=== PATIENT | female | born 1945 | race Caucasian/White ===

== ENCOUNTER 2018-05-30 21:23 | Emergency (ER) | payer MEDICARE ==
[~2018-05-30] VITALS: Ht 157.5 cm; Wt 76.7 kg
[~2018-05-30 21:23] MED LIST: BENICAR40 MG; FERROUS SULFATE28 MG; KEFLEX500 MG PO; LORTAB 7.5-5001 EACH PO; METFORMIN HCL500 MG; SIMVASTATIN40 MG; TRILIPIX135 MG
[2018-05-30 22:10] LABS: BASOPHILS % 0.4 % (0.0-1.0); EOSINOPHILS # (AUTO) 0.1 (0.0-0.4); HEMOGLOBIN 11.2 g/dL (12.0-16.0); LYMPHOCYTES # (AUTO) 1.6 (1.0-3.2); LYMPHOCYTES % 23.2 % (18.0-39.1); MEAN CORPUSCULAR HEMOGLOBIN 29.4 pg (28-32); MEAN CORPUSCULAR HGB CONC 32.9 g/dL (31-35); MEAN CORPUSCULAR VOLUME 89.2 fL (81-99); MONOCYTES # (AUTO) 0.5 (0.2-0.8); MONOCYTES % 7.8 % (4.4-11.3); NEUTROPHILS # (AUTO) 4.6 (2.1-6.9); NEUTROPHILS % 66.2 % (38.7-80.0); PLATELET COUNT 179 x10e3/uL (140-360); RED BLOOD COUNT 3.81 x10e6/uL (3.6-5.1); RED CELL DISTRIBUTION WIDTH 13.2 % (11.7-14.4)
[2018-05-30 22:25] LABS: ALANINE AMINOTRANSFERASE 21 IU/L (0-55); ALBUMIN 3.6 g/dL (3.5-5.0); ALBUMIN/GLOBULIN RATIO 1.1 (0.8-2.0); ALKALINE PHOSPHATASE 81 IU/L (40-150); AMYLASE 41 U/L (25-125); ANION GAP 15.8 mmol/L (8-16); BLOOD UREA NITROGEN 17 mg/dL (7-26); BUN/CREATININE RATIO 23 (6-25); CALCIUM 9.3 mg/dL (8.4-10.2); CARBON DIOXIDE 23 mmol/L (22-29); CHLORIDE 103 mmol/L (98-107); CREATININE, SERUM 0.74 mg/dL (0.57-1.11); EST GLOMERULAR FILTRATION RATE > 60 ML/MIN (60-); GLUCOSE 214 mg/dL (74-118); LIPASE 17 U/L (8-78); POTASSIUM 3.8 mmol/L (3.5-5.1); SODIUM 138 mmol/L (136-145)
[2018-05-30 22:40] LABS: CLARITY,URINE CLEAR (CLEAR); COLOR,URINE YELLOW (YELLOW); LEUKOCYTE ESTERASE ,URINE 2+ (NEGATIVE)
[2018-05-30 22:41] LABS: BACTERIA,URINE MODERATE /HPF; BILIRUBIN,URINE NEGATIVE (NEGATIVE); EPITHELIAL CELLS,URINE FEW /LPF; KETONES,URINE NEGATIVE (NEGATIVE); NITRITE,URINE NEGATIVE (NEGATIVE); PROTEIN,URINE DIPSTICK NEGATIVE (NEGATIVE); RENAL EPITHELIAL CELLS,URINE FEW; URINE UROBILINOGEN 0.2 mg/dL (0.2 - 1); WBC,URINE (MAN) >50 /HPF (0-5)
[2018-05-30] MEDS ORDERED: TRAMADOL HCL 50 MG TAB PO ONE (23:15)
[2018-05-30] MEDS ORDERED: CEFTRIAXONE SOD 1 GM VIAL IV ONE (23:15)
--- NOTE | 2018-05-31 00:11 | Diagnostic Imaging Report ---
EXAM: CT Abdomen and Pelvis WITHOUT contrast INDICATION: Right-sided abdominal/back pain for one day. ^STONE PROTOCOL ^[id number] ^2320 ^Y COMPARISON: Abdominal CT 04/04/2011 TECHNIQUE: Abdomen and pelvis were scanned utilizing a multidetector helical scanner from the lung base to the pubic symphysis without administration of IV contrast. Coronal and sagittal reformations were obtained. Routine protocol was performed. IV CONTRAST: None ORAL CONTRAST: Water COMPLICATIONS: None RADIATION DOSE: Total DLP: 262.8 mGy*cm Estimated effective dose: (DLP x 0.015 x size factor) mSv CTDIvol has been reviewed. It is below the limits set by the Radiation Protocol Committee (RPC). Dose modulation, iterative reconstruction, and/or weight based adjustment of the mA/kV was utilized to reduce the radiation dose to as low as reasonably achievable. FINDINGS: Absence of intravenous contrast decreases sensitivity for detection of focal lesions and vascular pathology. LINES and TUBES: None. LOWER THORAX: Unremarkable HEPATOBILIARY: No focal hepatic lesions. No biliary ductal dilation. GALLBLADDER: Absent SPLEEN: No splenomegaly. PANCREAS: Atrophic. No focal masses or ductal dilatation. ADRENALS: No adrenal nodules KIDNEYS/URETERS: No hydronephrosis. Indeterminate 1.4 cm and 0.8 cm lesions in the superior pole of the left kidney measuring 48 HU and 61 HU respectively. Partial duplication of the left kidney. No stones. GI TRACT: No abnormal distention or evidence of bowel obstruction. Sutures in the sigmoid colon. Scattered colonic diverticula without evidence of diverticulitis. Thickening of an approximately 3.5 cm long segment of the ascending colon. Appendix is normal. PELVIC ORGANS/BLADDER: Unremarkable. LYMPH NODES: No lymphadenopathy. VESSELS: There is moderate atherosclerotic disease in the aorta and major arterial branches. PERITONEUM / RETROPERITONEUM: No free air or fluid. BONES: There are degenerative changes in the lumbar spine. SOFT TISSUES: Midline laparotomy scar. Small fat-containing supra umbilical hernias without stranding to suggest inflammation/strangulation. No bowel seen within. IMPRESSION: 1. No acute abnormalities in the abdomen or pelvis. 2. Ascending colonic wall thickening which may be related to underdistention. Recommend correlation with colon cancer screening and/or attention at the time of follow up imaging. 3. Two lesions in the left kidney are indeterminate and can be further evaluated with non-emergent abdominal MRI without and with contrast. Signed by: DR. Trenton Henley MD on 05/31/2018 12:08 AM
[2018-05-31 00:45] VITALS: BP 138/66
== END 2018-05-31 01:03 | disposition home or self-care (01) ==
LOC: ER 21:23
DX: M54.5 Low back pain (principal); R10.9 Unspecified abdominal pain; S39.011A Strain of muscle, fascia and tendon of abdomen, initial encounter; N30.91 Cystitis, unspecified with hematuria
CPT/HCPCS: 36415; 74176; 80053; 81001; 82150; 83690; 85025; 87086; 99284; J0696

== ENCOUNTER 2019-08-25 14:00 | Emergency (ER) | payer MEDICARE ==
[~2019-08-25] VITALS: Ht 157.5 cm; Wt 62.1 kg
--- OUTSIDE RECORDS SUMMARY | 2019-08-25 14:06 | XMS REPORT ---
Author Author [facility] Address Unknown Phone Unavailable Care Team Providers Care Door To Door Salesperson Name Role Phone René MCMAHAN Unavailable Unavailable Problems This patient has no known problems. Allergies, Adverse Reactions, Alerts This patient has no known allergies or adverse reactions. Medications This patient has no known medications. Results Test Description Test Time Test Comments Text Results Atomic Results Result Comments CT ABDOMEN/PELVIS WO 2018-05-30 23:54:00 [place] [address] Patient Name: CONNIE JOHNSON MR #: [id number] : 1945 Age/Sex: 72/F Req #: [id number] Adm Physician: Ordered by: KEITH MCMAHAN MD Report #: [id number] Location: ER Room/Bed: Procedure: [id number] CT/CT ABDOMEN/PELVIS WO Exam Date: 05/30/18 Exam Time: 2319 REPORT STATUS: Signed EXAM: CT Abdomen and Pelvis WITHOUT contrast INDICATION: Right-sided abdominal/back pain for one day. STONE PROTOCOL [id number] 2320 Y COMPARISON: Abdominal CT 04/04/2011 TECHNIQUE: Abdomen and pelvis were scanned utilizing a multidetector helical scanner from the lung base to the pubic symphysis without administration of IV contrast. Coronal and sagittal reformations were obtained. Routine protocol was performed. IV CONTRAST: None ORAL CONTRAST: Water COMPLICATIONS: None RADIATION DOSE: Total DLP: 262.8 mGy*cm Estimated effective dose: (DLP x 0.015 x size factor) mSv CTDIvol has been reviewed. It is below the limits set by the Radiation Protocol Committee (RPC). Dose modulation, iterative reconstruction, and/or weight based adjustment of the mA/kV was utilized to reduce the radiation dose to as low as reasonably achievable. FINDINGS: Absence of intravenous contrast decreases sensitivity for detection of focal lesions and vascular pathology. LINES and TUBES: None. LOWER THORAX: Unremarkable HEPATOBILIARY: No focal hepatic lesions. No biliary ductal dilation. GALLBLADDER: Absent SPLEEN: No splenomegaly. PANCREAS: Atrophic. No focal masses or ductal dilatation. ADRENALS: No adrenal nodules KIDNEYS/URETERS: No hydronephrosis. Indeterminate 1.4 cm and 0.8 cm lesions in the superior pole of the left kidney measuring 48 HU and 61 HU respectively. Partial duplication of the left kidney. No stones. GI TRACT: No abnormal distention or evidence of bowel obstruction. Sutures in the sigmoid colon. Scattered colonic diverticula without evidence of diverticulitis. Thickening of an approximately 3.5 cm long segment of the ascending colon. Appendix is normal. PELVIC ORGANS/BLADDER: Unremarkable. LYMPH NODES: No lymphadenopathy. VESSELS: There is moderate atherosclerotic disease in the aorta and major arterial branches. PERITONEUM / RETROPERITONEUM: No free air or fluid. BONES: There are degenerative changes in the lumbar spine. SOFT TISSUES: Midline laparotomy scar. Small fat-containing supra umbilical hernias without stranding to suggest inflammation/strangulation. No bowel seen within. IMPRESSION: 1. No acute abnormalities in the abdomen or pelvis. 2. Ascending colonic wall thickening which may be related to underdistention. Recommend correlation with colon cancer screening and/or attention at the time of follow up imaging. 3. Two lesions in the left kidney are indeterminate and can be further evaluated with non-emergent abdominal MRI without and with contrast. Signed by: DR. Trenton Henley MD on 05/31/2018 12:08 AM Dictated By: TRENTON HENLEY MD Transcribed By: DANG on 05/31/187 COPY TO: KEITH MCMAHAN MD
[2019-08-25] MEDS ORDERED: PANTOPRAZOLE 40 MG 10ML VIAL IV STA (14:21)
[2019-08-25] MEDS ORDERED: SODIUM CHLORIDE 0.9% 1000ML 1,000 ML IV STA (14:21)
[2019-08-25] MEDS ORDERED: ONDANSETRON HCL INJ 2MG/ML 2ML 2 MG/ML VIAL IV STA (14:21)
[2019-08-25 14:53] LABS: BASOPHILS % 0.2 % (0.0-1.0); EOSINOPHILS % 0.1 % (0.0-6.0); HEMOGLOBIN 13.3 g/dL (12.0-16.0); LYMPHOCYTES # (AUTO) 0.3 (1.0-3.2); LYMPHOCYTES % 4.1 % (18.0-39.1); MEAN CORPUSCULAR HEMOGLOBIN 29.6 pg (28-32); MEAN CORPUSCULAR HGB CONC 32.4 g/dL (31-35); MEAN CORPUSCULAR VOLUME 91.3 fL (81-99); MONOCYTES # (AUTO) 0.2 (0.2-0.8); MONOCYTES % 2.6 % (4.4-11.3); NEUTROPHILS # (AUTO) 7.7 (2.1-6.9); NEUTROPHILS % 92.5 % (38.7-80.0); PLATELET COUNT 168 x10e3/uL (140-360); RED BLOOD COUNT 4.49 x10e6/uL (3.6-5.1); RED CELL DISTRIBUTION WIDTH 13.2 % (11.7-14.4)
[2019-08-25 15:00] LABS: CLARITY,URINE SL CLOUDY (CLEAR); COLOR,URINE YELLOW (YELLOW); LEUKOCYTE ESTERASE ,URINE TRACE (NEGATIVE)
[2019-08-25 15:01] LABS: BILIRUBIN,URINE NEGATIVE (NEGATIVE); KETONES,URINE NEGATIVE (NEGATIVE); NITRITE,URINE NEGATIVE (NEGATIVE); PROTEIN,URINE DIPSTICK 1+ (NEGATIVE); URINE UROBILINOGEN 0.2 mg/dL (0.2 - 1)
[2019-08-25 15:03] LABS: INR 0.91; PROTHROMBIN TIME 12.8 seconds (11.9-14.5)
[2019-08-25 15:04] LABS: PARTIAL THROMBOPLASTIN TIME 25.9 seconds (23.8-35.5)
[2019-08-25 15:12] LABS: ALANINE AMINOTRANSFERASE 22 IU/L (0-55); ALBUMIN 3.9 g/dL (3.5-5.0); ALBUMIN/GLOBULIN RATIO 1.2 (0.8-2.0); ALKALINE PHOSPHATASE 74 IU/L (40-150); ANION GAP 14.9 mmol/L (8-16); BLOOD UREA NITROGEN 16 mg/dL (7-26); BUN/CREATININE RATIO 25 (6-25); CALCIUM 9.3 mg/dL (8.4-10.2); CARBON DIOXIDE 26 mmol/L (22-29); CHLORIDE 101 mmol/L (98-107); CREATINE KINASE 98 IU/L (29-168); CREATININE, SERUM 0.65 mg/dL (0.57-1.11); EST GLOMERULAR FILTRATION RATE > 60 ML/MIN (60-); GLUCOSE 150 mg/dL (74-118); MAGNESIUM 1.7 MG/DL (1.3-2.1); POTASSIUM 3.9 mmol/L (3.5-5.1); SODIUM 138 mmol/L (136-145)
[2019-08-25 15:19] LABS: BACTERIA,URINE MODERATE /HPF; EPITHELIAL CELLS,URINE FEW /LPF; RBC,URINE 0-5 /HPF (0-5); WBC,URINE (MAN) 0-5 /HPF (0-5)
== END 2019-08-25 16:12 | disposition home or self-care (01) ==
LOC: ER 14:00
DX: R11.2 Nausea with vomiting, unspecified (principal); I10 Essential (primary) hypertension; E11.9 Type 2 diabetes mellitus without complications; E78.5 Hyperlipidemia, unspecified
CPT/HCPCS: 36415; 80053; 81001; 82550; 82553; 83735; 84484; 85025; 85610; 85730; 87086; 99284; C9113; J2405; J7030

== ENCOUNTER 2019-12-16 17:04 | Emergency (ER) | payer MEDICARE ==
[~2019-12-16] VITALS: Ht 157.5 cm; Wt 62.1 kg
--- OUTSIDE RECORDS SUMMARY | 2019-12-16 17:09 | XMS REPORT | Continuity of Care Document ---
Author Author [facility] t Organization [facility] Address [address] [place] [id number] Phone Unavailable Care Team Providers Care Blue Split Trimmer Name Role Phone June URBAN DO PCP [facility] Darnell Urban Attphys René MCMAHAN Attphys Unavailable Payers Payer Name Policy Type Policy Number Effective Date Expiration Date S margarita [employer] [id number] 2019 00:00:00 [facility] Medicare A & B [id number] 2009 00:00:00 C [facility] Ppo [id number] 2008 00:00:00 [facility] Medicare Part B Only [id number] [facility] Problems Condition Name Condition Details Condition Category Status Onset Date Resolution Date Last Treatment Date Treating Clinician Comments Source Z12.13 - ENCNTR SCREEN FOR MALIGNANT NE Z12.13 - ENCNTR SCREEN FOR MALIGNANT NE Active 08/29/2019 [facility] [place] Diagnosis Active 2019-08-29 00:01:00 2019-08-29 14:49:00 M anand Thomas R51 - HEADACHE R51 - HEADACHE Active 08/06/2017 [facility] [place] Diagnosis Active 2017-08-06 00:01:00 2017-12-28 21:06:00 Tre Thomas M25.551 - PAIN IN RIGHT HIP M54.5 - LOW M25.551 - PAIN IN RIGHT HIP M54.5 - LOW Active 11/29/2015 [facility] [place] Diagnosis Active 2015-11-29 00:01:00 2015-11-29 12:01:00 M anand Thomas Headache Head ache 11/15/2017 EMILEE Ponce Problem 2017-11-15 16:36:47 Tre Thomas Contusion of scalp, initial encounter Contusion of scalp, initial encounter 08/12/2017 11/15/2017 EMILEE Ponce Problem 2017-08-12 05:22:32 2017-11-15 16:36:47 2017-11-15 16:36:47 Tre Thomas Bursitis of left shoulder Burs itis of left shoulder 07/23/2017 10/26/2017 EMILEE Ponce Problem 2017-07-23 05: 33:10 2017-10-26 00:01:42 2017-10-26 00:01:42 Tre irvin Allergies, Adverse Reactions, Alerts This patient has no known allergies or adverse reactions. Social History Social Habit Start Date Stop Date Quantity Comments Source Social History 2018-11-15 04:59:00 2018-11-15 04:59:00 Tre Thomas Medications Ordered Medication Name Filled Medication Name Start Date Stop Da te Current Medication? Ordering Clinician Indication Dosage Frequency Signature (SIG) Comments Components Source Cephalexin Monohydrate (Keflex) 500 Mg Capsule Cephale terry Monohydrate (Keflex) 500 Mg Capsule Yes 500 Three Times A Day [facility] Fenofibric Acid (Choline) (Trilipix) 135 Mg Capsule. Fenofibric Acid (Choline) (Trilipix) 135 Mg Capsule. Yes Daily [facility] Ferrous Sulfate 28 Mg Tablet Ferrous Sulfate 28 Mg Tablet Y es 65 Daily [facility] Hydrocodone Bit/Acetaminophen (Lortab 7.5-500 Tablet) 1 Each Tablet Hydrocodone Bit/Acetaminophen (Lortab 7.5-500 Tablet) 1 Each Tablet Yes 1 Every 4 Hours as needed [facility] Metformin Hcl 500 Mg Tablet Metformin Hcl 500 Mg Tablet Yes Daily [facility] Olmesartan Medoxomil (Benicar) 40 Mg Tablet Olmesartan Medoxomil (Benicar) 40 Mg Tablet Yes Daily [facility] Simvastatin 40 Mg Tablet Simvastatin 40 Mg Tablet Yes Bedtime [facility] Procedures This patient has no known procedures. Encounters Start Date/Time End Date/Time Encounter Type Admission Type Attendi [facility] Care Department Encounter ID Source 2019-08-29 14:39:00 2019-08-29 23:59:00 Outpatient Matt piñaJuan Pablo MHHOIP MHHOIP [id number] 2019-08-25 14:00:00 2019-08-25 16:12:00 Departed Emergency Room [facility] [id number] [facility] 2018-11-14 10:21:00 2018-11-14 23:59:00 Outpatient Matt piñaWes OIB MHOIB [id number] 2018-05-30 21:23:00 2018-05-31 01:03:00 Departed Emergency Room 1 KEITH MCMAHAN [facility] [id number] [facility] 2017-08-09 09:28:00 2017-08-09 23:59:00 Outpatient Matt piña Wes Darnell HOIP HOIP [id number] 2017-07-19 11:06:00 2017-07-19 23:59:00 Outpatient Matt piña Wes Patrick HOIP MHHOIP [id number] 2017-07-19 11:06:00 2017-07-19 23:59:00 Outpatient Matt piñaWes HOIP MHHOIP [id number] 2016-12-01 13:12:00 2016-12-01 23:59:00 Outpatient Matt piña Wes Patrick HOIP HOIP [id number] 2015-11-29 11:51:00 2015-11-29 23:59:00 Outpatient Matt piña Wes Patrick HOIP MHHOIP [id number] 2015-02-15 10:07:00 2015-02-15 23:59:00 Outpatient Matt piñaWes HOIP HOIP [id number] Results Test Description Test Time Test Comments Results Result Comments Source Urine WBC 2019-08-25 15:19:00 Test Item Urine WBC (test code = 5821-4) 0-5 0-5 [facility] [id number] 15:19:00* Test Item Value Reference Range Interpretation Comments Urine RBC (test code = 91208-8) 0-5 0-5 [facility] Suouddcy4368-51-18 15:19:00* Test Item Value Reference Range Interpretation Comments Urine Bacteria (test code = 40257-9) MODERATE NONE H [facility] Epithelial Ockex1260-84-29 15:19:00 * Test Item Value Reference Range Interpretation Comments Urine Epithelial Cells (test code = 10520-6) FEW NONE [facility] HospitalCreatine Kinase MA0242-13-56 15:19:00* Test Item Value Reference Range Interpretation Comments Creatine Kinase MB (test code = 58942-5) 1.50 0-5.0 [facility] HospitalTroponin [id number] 15:19:00* Test Item Value Reference Range Interpretation Comments Troponin I (test code = QTV3287) < 0.001 0-0.300 [facility] Oitha6184-85-53 15:17:00* Test Item Value Reference Range Interpretation Comments Sodium Level (test code = 2951-2) 138 136-145 [facility]Potassium Yfqam9866-14-16 15:17:00* Test Item Value Reference Range Interpretation Comments Potassium Level (test code = 2823-3) 3.9 3.5-5.1 [facility] HospitalChloride Gewpq1893-08-67 15:17:00* Test Item Value Reference Range Interpretation Comments Chloride Level (test code = 2075-0) 101 98-107 [facility] HospitalCarbon Dioxide Ldjep5173-59-25 15:17:00* Test Item Value Reference Range Interpretation Comments Carbon Dioxide Level (test code = 2028-9) 26 22-29 [facility] HospitalAnion Kpg2381-64-04 15:17:00* Test Item Value Reference Range Interpretation Comments Anion Gap (test code = 50599-3) 14.9 8-16 [facility] Urea Fwiccwaq0362-67-14 15:17:00* Test Item Value Reference Range Interpretation Comments Blood Urea Nitrogen (test code = 3094-0) 16 7-26 [facility] HospitalCreatinine2020-02-14 15:17:00* Test Item Value Reference Range Interpretation Comments Creatinine (test code = 2160-0) 0.65 0.57-1.11 [facility] HospitalBUN/Creatinine Sohau8242-31-23 15:17:00* Test Item Value Reference Range Interpretation Comments BUN/Creatinine Ratio (test code = 3097-3) 25 6-25 [facility] HospitalEstimat Glomerular Filtration Rate 2019-08-25 15:17:00* Test Item Value Reference Range Interpretation Comments Estimat Glomerular Filtration Rate (test code = 858844347) > 60 >60 Ranges were taken from the National Kidney Disease Education Program and the [facility] literature.Reference ranges:60 or greater: Crgjtt58-29 ( for 3 consecutive months): Chronic kidney disease 15 or less: Kidney failureCHRISTUS Saint Michael HospitalGlucose Gevgj2668-75-37 15:17:00* Test Item Value Reference Range Interpretation Comments Glucose Level (test code = LXA7134) 150 74-118 H [facility] HospitalCalcium Tjqui6086-63-36 15:17:00* Test Item Value Reference Range Interpretation Comments Calcium Level (test code = 99923-5) 9.3 8.4-10.2 [facility] HospitalMagnesium Qbdjs0974-55-66 15:17:00* Test Item Value Reference Range Interpretation Comments Magnesium Level (test code = 49642-6) 1.7 1.3-2.1 [facility] HospitalTotal Kxpjnbhvw4514-06-43 15:17:00* Test Item Value Reference Range Interpretation Comments Total Bilirubin (test code = 1975-2) 1.1 0.2-1.2 [facility] HospitalAspartate Amino Transf (AST/SGOT) 2019-08-25 15:17:00* Test Item Value Reference Range Interpretation Comments Aspartate Amino Transf (AST/SGOT) (test code = Aspartate Amino Transf (AST/SGOT)) 20 5-34 [facility] HospitalAlanine Aminotransferase (ALT/SGPT) 2019-08-25 15:17:00* Test Item Value Reference Range Interpretation Comments Alanine Aminotransferase (ALT/SGPT) (test code = 1742-6) 22 0-55 [facility] HospitalTotal Clqkews8237-87-75 15:17:00* Test Item Value Reference Range Interpretation Comments Total Protein (test code = 2885-2) 7.1 6.5-8.1 [facility] HospitalAlbumin2020-02-14 15:17:00* Test Item Value Reference Range Interpretation Comments Albumin (test code = 1751-7) 3.9 3.5-5.0 [facility] HospitalGlobulin2020-02-14 15:17:00* Test Item Value Reference Range Interpretation Comments Globulin (test code = 08625-5) 3.2 2.3-3.5 [facility] HospitalAlbumin/Globulin Ehbcy1088-59-95 15:17:00 * Test Item Value Reference Range Interpretation Comments Albumin/Globulin Ratio (test code = 1759-0) 1.2 0.8-2.0 [facility] HospitalAlkaline Gkkauelsmuq7079-70-80 15:17:00* Test Item Value Reference Range Interpretation Comments Alkaline Phosphatase (test code = 6768-6) 74 40-150 [facility] HospitalCreatine Nquzhi1104-68-12 15:17:00* Test Item Value Reference Range Interpretation Comments Creatine Kinase (test code = 2157-6) 98 29-168 [facility] HospitalProthrombin Zmga4325-95-31 15:05:00* Test Item Value Reference Range Interpretation Comments Prothrombin Time (test code = 5902-2) 12.8 11.9-14.5 [facility] HospitalProthromb Time International Ratio 2019-08-25 15:05:00* Test Item Value Reference Range Interpretation Comments Prothromb Time International Ratio (test code = 6301-6) 0.91 Oral Anticoagulant Therapy INR Values:1. Low Intensity Therapy 1.5 - 2.02 . Moderate Intensity Therapy 2.0 - 3.03. High Intensity Therapy(1) 2.5 - 3. 54. High Intensity Therapy(2) 3.0 - 4.05. Panic Value INR > 5.0 [facility] HospitalActivated Partial Thromboplast Time 2019-08-25 15:05:00* Test Item Value Reference Range Interpretation Comments Activated Partial Thromboplast Time (test code = 87790-4) 25.9 23.8-35.5 [facility] HospitalUrine Dviys9431-71-20 15:01:00* Test Item Value Reference Range Interpretation Comments Urine Color (test code = 5778-6) YELLOW YELLOW [facility] HospitalUrine Wxupikx1380-35-43 15:01:00* Test Item Value Reference Range Interpretation Comments Urine Clarity (test code = 91577-8) SL CLOUDY CLEAR [facility] HospitalUrine Specific Qfvfzfl8647-42-69 15:01:00 * Test Item Value Reference Range Interpretation Comments Urine Specific Rosenberg (test code = 5811-5) >=1.030 1.010-1.02 5 [facility] HospitalUrine oP8387-93-98 15:01:00* Test Item Value Reference Range Interpretation Comments Urine pH (test code = 02658-8) 5.5 5-7 [facility] HospitalU[facility] Leukocyte Ehmhybms1827-63-51 15:01:00* Test Item Value Reference Range Interpretation Comments Urine Leukocyte Esterase (test code = 5799-2) TRACE NEGATIVE H [facility] HospitalUrine Petqbrx0642-17-87 15:01:00* Test Item Value Reference Range Interpretation Comments Urine Nitrite (test code = 92688-1) NEGATIVE NEGATIVE [facility] HospitalUrine Lbqghfi8363-44-84 15:01:00* Test Item Value Reference Range Interpretation Comments Urine Protein (test code = 5804-0) 1+ NEGATIVE H [facility] HospitalUrine Glucose (UA)2019-08-25 15:01:00* Test Item Value Reference Range Interpretation Comments Urine Glucose (UA) (test code = 2349-9) NEGATIVE NEGATIVE [facility] HospitalUrine Akamrix3484-31-34 15:01:00* Test Item Value Reference Range Interpretation Comments Urine Ketones (test code = 03723-4) NEGATIVE NEGATIVE [facility] HospitalUrine Ayabitjfdmzk5679-59-40 15:01:00* Test Item Value Reference Range Interpretation Comments Urine Urobilinogen (test code = 58292-6) 0.2 0.2-1 [facility] HospitalUrine Xmqlvjegh9991-73-08 15:01:00* Test Item Value Reference Range Interpretation Comments Urine Bilirubin (test code = 1978-6) NEGATIVE NEGATIVE [facility] HospitalUrine Rxidf9808-93-28 15:01:00* Test Item Value Reference Range Interpretation Comments Urine Blood (test code = 89354-9) 1+ NEGATIVE H [facility] HospitalWhite Blood Izuvl2871-72-46 14:53:00* Test Item Value Reference Range Interpretation Comments White Blood Count (test code = 6690-2) 8.36 4.8-10.8 [facility] HospitalRed Blood Mrtkf2383-76-20 14:53:00* Test Item Value Reference Range Interpretation Comments Red Blood Count (test code = 789-8) 4.49 3.6-5.1 [facility] HospitalHemoglobin2020-02-14 14:53:00* Test Item Value Reference Range Interpretation Comments Hemoglobin (test code = 72397-1) 13.3 12.0-16.0 [facility] HospitalHematocrit2020-02-14 14:53:00* Test Item Value Reference Range Interpretation Comments Hematocrit (test code = 4544-3) 41.0 34.2-44.1 [facility] HospitalMean Corpuscular Tapbhr3143-57-70 14:53:00* Test Item Value Reference Range Interpretation Comments Mean Corpuscular Volume (test code = 787-2) 91.3 81-99 [facility] HospitalMean Corpuscular Dqxvnhoxjs7829-32-38 14:53:00* Test Item Value Reference Range Interpretation Comments Mean Corpuscular Hemoglobin (test code = 785-6) 29.6 28-32 [facility] HospitalMean Corpuscular Hemoglobin Concent 2019-08-25 14:53:00* Test Item Value Reference Range Interpretation Comments Mean Corpuscular Hemoglobin Concent (test code = 786-4) 32.4 31-35 [facility] HospitalRed Cell Distribution Ppfcj4835-37-13 14:53:00* Test Item Value Reference Range Interpretation Comments Red Cell Distribution Width (test code = 38815-7) 13.2 11.7 -14.4 [facility] HospitalPlatelet Emqxo0196-68-51 14:53:00* Test Item Value Reference Range Interpretation Comments Platelet Count (test code = 777-3) 168 140-360 [facility] HospitalNeutrophils (%) (Auto)2019-08-25 14:53:00 * Test Item Value Reference Range Interpretation Comments Neutrophils (%) (Auto) (test code = 80639-4) 92.5 38.7-80.0 H [facility] HospitalLymphocytes (%) (Auto)2019-08-25 14:53:00 * Test Item Value Reference Range Interpretation Comments Lymphocytes (%) (Auto) (test code = 736-9) 4.1 18.0-39.1 L [facility] HospitalMonocytes (%) (Auto)2019-08-25 14:53:00* Test Item Value Reference Range Interpretation Comments Monocytes (%) (Auto) (test code = 5905-5) 2.6 4.4-11.3 L [facility] HospitalEosinophils (%) (Auto)2019-08-25 14:53:00 * Test Item Value Reference Range Interpretation Comments Eosinophils (%) (Auto) (test code = 713-8) 0.1 0.0-6.0 [facility] HospitalBasophils (%) (Auto)2019-08-25 14:53:00* Test Item Value Reference Range Interpretation Comments Basophils (%) (Auto) (test code = 706-2) 0.2 0.0-1.0 [facility] HospitalIM GRANULOCYTES %2019-08-25 14:53:00* Test Item Value Reference Range Interpretation Comments IM GRANULOCYTES % (test code = IM GRANULOCYTES %) 0.5 0.0- 1.0 [facility] HospitalNeutrophils # (Auto)2019-08-25 14:53:00* Test Item Value Reference Range Interpretation Comments Neutrophils # (Auto) (test code = 751-8) 7.7 2.1-6.9 H [facility] HospitalLymphocytes # (Auto)2019-08-25 14:53:00* Test Item Value Reference Range Interpretation Comments Lymphocytes # (Auto) (test code = 32374-9) 0.3 1.0-3.2 L [facility] HospitalMonocytes # (Auto)2019-08-25 14:53:00* Test Item Value Reference Range Interpretation Comments Monocytes # (Auto) (test code = 742-7) 0.2 0.2-0.8 [facility] HospitalEosinophils # (Auto)2019-08-25 14:53:00* Test Item Value Reference Range Interpretation Comments Eosinophils # (Auto) (test code = 711-2) 0.0 0.0-0.4 [facility] HospitalBasophils # (Auto)2019-08-25 14:53:00* Test Item Value Reference Range Interpretation Comments Basophils # (Auto) (test code = 704-7) 0.0 0.0-0.1 [facility] HospitalAbsolute Immature Granulocyte (auto 2019-08-25 14:53:00* Test Item Value Reference Range Interpretation Comments Absolute Immature Granulocyte (auto (sal t code = Absolute Immature Granulocyte (auto) 0.04 0-0.1 [facility] HospitalCT ABDOMEN/PELVIS RF9148-15-63 23:54:00 [place] [address] Patient Name: CONNIE JOHNSON MR #: [id number] : 02/1946 Age/Sex: 72/F Req #: [id number] Adm Physician: Ordered by: KEITH MCMAHAN MD Report #: [id number] Location: ER Room/Bed: Procedure: 1 119-0029 CT/CT ABDOMEN/PELVIS WO Exam Date: 05/30/18 Exam Time: 2320 REPORT STATUS: Sig lily EXAM: CT Abdomen and Pelvis WITHOUT contrast INDICATION: Right-sided abdominal/back pain for one day. STONE PROTOCOL [id number] 2320 Y COMPARISON: Abdominal CT 04/04/2011 TECHNIQUE: Abdomen and pelvis were scanned utilizing a multidetector helical scanner from the lung base to the pubic sym physis without administration of IV contrast. Coronal and sagittal reformation s were obtained. Routine protocol was performed. IV CONTRAST: None ORAL CONTRAST: Water COMPLICATIONS: None RADIATION DOS E: Total DLP: 262.8 mGy*cm Estimated effective dose: (DLP x 0.015 x size factor) mSv CTDIvol has been reviewed. It is below the limits set by the Radiation Protocol Committee (RPC). Dose modulation, iterative reconstr uction, and/or weight based adjustment of the mA/kV was utilized to reduce the radiation dose to as low as reasonably achievable. FINDINGS: Absence of intravenous contrast decreases sensitivity for detection of focal lesions and vascular pathology. LINES and TUBES: None. LOWER THORAX: Unremarka ble HEPATOBILIARY: No focal hepatic lesions. No biliary ductal dilatio n. GALLBLADDER: Absent SPLEEN: No splenomegaly. PANCREAS: Atrop hic. No focal masses or ductal dilatation. ADRENALS: No adrenal nodules KIDNEYS/URETERS: No hydronephrosis. Indeterminate 1.4 cm and 0.8 cm les ions in the superior pole of the left kidney measuring 48 HU and 61 HU respect ively. Partial duplication of the left kidney. No stones. GI TRACT: No ab normal distention or evidence of bowel obstruction. Sutures in the sigmoid co thomas. Scattered colonic diverticula without evidence of diverticulitis. Thicken ing of an approximately 3.5 cm long segment of the ascending colon. Appendix i s normal. PELVIC ORGANS/BLADDER: Unremarkable. LYMPH NODES: No lymphad enopathy. VESSELS: There is moderate atherosclerotic disease in the aorta a nd major arterial branches. PERITONEUM / RETROPERITONEUM: No free air or fluid. BONES: There are degenerative changes in the lumbar spine. SOFT TISSUES: Midline laparotomy scar. Small fat-containing supra umbilical hernias without stranding to suggest inflammation/strangulation. No bowel seen within. IMPRESSION: 1. No acute abnormalities in the abdomen or pelvis. 2. Ascending colonic wall thickening which may be related to underdi stention. Recommend correlation with colon cancer screening and/or attention a t the time of follow up imaging. 3. Two lesions in the left kidney are ind eterminate and can be further evaluated with non-emergent abdominal MRI withou t and with contrast. Signed by: DR. Trenton Chicas MD on 05/31/2018 12:08 AM Dictated By: TRENTON CHICAS MD Transcribed By: DANG on 05/31/187 COPY TO: KEITH MCMAHAN MD Sodium Ydozi8816-78-60 22:46:00* Test Item Value Reference Range Interpretation Comments Sodium Level (test code = 2951-2) 138 136-145 [facility] HospitalPotassium Tgftb5907-03-39 22:46:00* Test Item Value Reference Range Interpretation Comments Potassium Level (test code = 2823-3) 3.8 3.5-5.1 [facility] HospitalChloride Woklt0985-39-37 22:46:00* Test Item Value Reference Range Interpretation Comments Chloride Level (test code = 2075-0) 103 98-107 [facility] HospitalCarbon Dioxide Zuraw4593-90-38 22:46:00* Test Item Value Reference Range Interpretation Comments Carbon Dioxide Level (test code = 2028-9) 23 22-29 [facility] HospitalAnion Jln5694-22-39 22:46:00* Test Item Value Reference Range Interpretation Comments Anion Gap (test code = 67145-1) 15.8 8-16 [facility] HospitalBlood Urea Xbaltbvt9020-33-96 22:46:00* Test Item Value Reference Range Interpretation Comments Blood Urea Nitrogen (test code = 3094-0) 17 7-26 [facility] HospitalCreatinine2018-11-19 22:46:00* Test Item Value Reference Range Interpretation Comments Creatinine (test code = 2160-0) 0.74 0.57-1.11 [facility] HospitalBUN/Creatinine Csgyv0291-17-92 22:46:00* Test Item Value Reference Range Interpretation Comments BUN/Creatinine Ratio (test code = 3097-3) 23 6-25 [facility] HospitalEstimat Glomerular Filtration Rate 2018-05-30 22:46:00* Test Item Value Reference Range Interpretation Comments Estimat Glomerular Filtration Rate (test code = 761781314) > 60 >60 Ranges were taken from the National Kidney Disease Education Program and the [facility] Kidney Foundation literature.Reference ranges:60 or greater: Iwxmyy60-24 ( for 3 consecutive months): Chronic kidney disease 15 or less: Kidney failureCHRISTUS Saint Michael HospitalGlucose Hzymw3341-77-82 22:46:00* Test Item Value Reference Range Interpretation Comments Glucose Level (test code = WLX3793) 214 74-118 H [facility] HospitalCalcium Apnne7141-85-14 22:46:00* Test Item Value Reference Range Interpretation Comments Calcium Level (test code = 06418-4) 9.3 8.4-10.2 [facility] HospitalTotal Fyodiyjbw3915-98-01 22:46:00* Test Item Value Reference Range Interpretation Comments Total Bilirubin (test code = 1975-2) 0.5 0.2-1.2 [facility] HospitalAspartate Amino Transf (AST/SGOT) 2018-05-30 22:46:00* Test Item Value Reference Range Interpretation Comments Aspartate Amino Transf (AST/SGOT) (test code = Aspartate Amino Transf (AST/SGOT)) 22 5-34 [facility] HospitalAlanine Aminotransferase (ALT/SGPT) 2018-05-30 22:46:00* Test Item Value Reference Range Interpretation Comments Alanine Aminotransferase (ALT/SGPT) (test code = 1742-6) 21 0-55 [facility] HospitalTotal Adipkgy3437-16-35 22:46:00* Test Item Value Reference Range Interpretation Comments Total Protein (test code = 2885-2) 7.0 6.5-8.1 [facility] HospitalAlbumin2018-11-19 22:46:00* Test Item Value Reference Range Interpretation Comments Albumin (test code = 1751-7) 3.6 3.5-5.0 [facility] HospitalGlobulin2018-11-19 22:46:00* Test Item Value Reference Range Interpretation Comments Globulin (test code = 82708-0) 3.4 2.3-3.5 [facility] HospitalAlbumin/Globulin Klhwb4935-84-23 22:46:00 * Test Item Value Reference Range Interpretation Comments Albumin/Globulin Ratio (test code = 1759-0) 1.1 0.8-2.0 [facility] HospitalAlkaline Gavomhlbfzb6886-08-35 22:46:00* Test Item Value Reference Range Interpretation Comments Alkaline Phosphatase (test code = 6768-6) 81 40-150 [facility] HospitalAmylase Pjfue5806-13-75 22:46:00* Test Item Value Reference Range Interpretation Comments Amylase Level (test code = 1798-8) 41 25-125 [facility] HospitalLipase2018-11-19 22:46:00* Test Item Value Reference Range Interpretation Comments Lipase (test code = 3040-3) 17 8-78 [facility] HospitalUrine Zigoe3673-98-99 22:41:00* Test Item Value Reference Range Interpretation Comments Urine Color (test code = 5778-6) YELLOW YELLOW [facility] HospitalUrine Bbmugsy6484-47-30 22:41:00* Test Item Value Reference Range Interpretation Comments Urine Clarity (test code = 24676-7) CLEAR CLEAR [facility] HospitalUrine Specific Fklikks6696-81-08 22:41:00 * Test Item Value Reference Range Interpretation Comments Urine Specific Rosenberg (test code = 5811-5) 1.015 1.010-1.02 5 [facility] HospitalUrine aO3474-29-90 22:41:00* Test Item Value Reference Range Interpretation Comments Urine pH (test code = 28927-2) 6 5-7 [facility] Leukocyte Ofwyruat7484-52-59 22:41:00* Test Item Value Reference Range Interpretation Comments Urine Leukocyte Esterase (test code = 5799-2) 2+ NEGATIVE H [facility] Nqqhbuf3234-75-82 22:41:00* Test Item Value Reference Range Interpretation Comments Urine Nitrite (test code = 59777-4) NEGATIVE NEGATIVE [facility] Lhilbsd4534-64-20 22:41:00* Test Item Value Reference Range Interpretation Comments Urine Protein (test code = 5804-0) NEGATIVE NEGATIVE [facility] Glucose (UA)2018-05-30 22:41:00* Test Item Value Reference Range Interpretation Comments Urine Glucose (UA) (test code = 2349-9) NEGATIVE NEGATIVE [facility] Flujzmx1266-79-72 22:41:00* Test Item Value Reference Range Interpretation Comments Urine Ketones (test code = 61170-5) NEGATIVE NEGATIVE [facility] Wupcdbyuhreo2900-84-32 22:41:00* Test Item Value Reference Range Interpretation Comments Urine Urobilinogen (test code = 23925-7) 0.2 0.2-1 [facility] Vvhdsjxko3997-14-97 22:41:00* Test Item Value Reference Range Interpretation Comments Urine Bilirubin (test code = 1978-6) NEGATIVE NEGATIVE [facility] Kalbm4468-17-32 22:41:00* Test Item Value Reference Range Interpretation Comments Urine Blood (test code = 78135-8) 1+ NEGATIVE H [facility] LBE9058-07-17 22:41:00* Test Item Value Reference Range Interpretation Comments Urine WBC (test code = 5821-4) >50 0-5 H [facility] [id number] 22:41:00* Test Item Value Reference Range Interpretation Comments Urine RBC (test code = 11768-4) 6-10 0-5 H [facility] Bwdrgcxm2412-10-56 22:41:00* Test Item Value Reference Range Interpretation Comments Urine Bacteria (test code = 75027-6) MODERATE NONE H [facility] Epithelial Joctx0144-54-14 22:41:00 * Test Item Value Reference Range Interpretation Comments Urine Epithelial Cells (test code = 15118-6) FEW NONE [facility] Renal Epithelial Ukllq2676-94-46 22:41:00* Test Item Value Reference Range Interpretation Comments Urine Renal Epithelial Cells (test code = 62907-4) FEW NON E H [facility] Blood Qddut9265-73-93 22:11:00* Test Item Value Reference Range Interpretation Comments White Blood Count (test code = 6690-2) 6.91 4.8-10.8 [facility] Wywip6365-98-07 22:11:00* Test Item Value Reference Range Interpretation Comments Red Blood Count (test code = 789-8) 3.81 3.6-5.1 [facility]Hemoglobin2018-11-19 22:11:00* Test Item Value Reference Range Interpretation Comments Hemoglobin (test code = 90672-4) 11.2 12.0-16.0 L [facility] HospitalHematocrit2018-11-19 22:11:00* Test Item Value Reference Range Interpretation Comments Hematocrit (test code = 4544-3) 34.0 34.2-44.1 L [facility]Mean Corpuscular Grsmvj4945-95-49 22:11:00* Test Item Value Reference Range Interpretation Comments Mean Corpuscular Volume (test code = 787-2) 89.2 81-99 [facility] Corpuscular Qspahwures9177-34-51 22:11:00* Test Item Value Reference Range Interpretation Comments Mean Corpuscular Hemoglobin (test code = 785-6) 29.4 28-32 [facility] Corpuscular Hemoglobin Concent 2018-05-30 22:11:00* Test Item Value Reference Range Interpretation Comments Mean Corpuscular Hemoglobin Concent (test code = 786-4) 32.9 31-35 [facility] Cell Distribution Eisdt7682-94-51 22:11:00* Test Item Value Reference Range Interpretation Comments Red Cell Distribution Width (test code = 44085-8) 13.2 11.7 -14.4 [facility] HospitalPlatelet Uiybc5116-42-18 22:11:00* Test Item Value Reference Range Interpretation Comments Platelet Count (test code = 777-3) 179 140-360 [facility] HospitalNeutrophils (%) (Auto)2018-05-30 22:11:00 * Test Item Value Reference Range Interpretation Comments Neutrophils (%) (Auto) (test code = 78141-8) 66.2 38.7-80.0 [facility] HospitalLymphocytes (%) (Auto)2018-05-30 22:11:00 * Test Item Value Reference Range Interpretation Comments Lymphocytes (%) (Auto) (test code = 736-9) 23.2 18.0-39.1 [facility] (%) (Auto)2018-05-30 22:11:00* Test Item Value Reference Range Interpretation Comments Monocytes (%) (Auto) (test code = 5905-5) 7.8 4.4-11.3 [facility]Eosinophils (%) (Auto)2018-05-30 22:11:00 * Test Item Value Reference Range Interpretation Comments Eosinophils (%) (Auto) (test code = 713-8) 2.0 0.0-6.0 [facility] (%) (Auto)2018-05-30 22:11:00* Test Item Value Reference Range Interpretation Comments Basophils (%) (Auto) (test code = 706-2) 0.4 0.0-1.0 [facility] HospitalIM GRANULOCYTES %2018-05-30 22:11:00* Test Item Value Reference Range Interpretation Comments IM GRANULOCYTES % (test code = IM GRANULOCYTES %) 0.4 0.0- 1.0 [facility] HospitalNeutrophils # (Auto)2018-05-30 22:11:00* Test Item Value Reference Range Interpretation Comments Neutrophils # (Auto) (test code = 751-8) 4.6 2.1-6.9 [facility] HospitalLymphocytes # (Auto)2018-05-30 22:11:00* Test Item Value Reference Range Interpretation Comments Lymphocytes # (Auto) (test code = 65184-0) 1.6 1.0-3.2 [facility] Hospital[facility] # (Auto)2018-05-30 22:11:00* Test Item Value Reference Range Interpretation Comments Monocytes # (Auto) (test code = 742-7) 0.5 0.2-0.8 [facility]Eosinophils # (Auto)2018-05-30 22:11:00* Test Item Value Reference Range Interpretation Comments Eosinophils # (Auto) (test code = 711-2) 0.1 0.0-0.4 [facility] # (Auto)2018-05-30 22:11:00* Test Item Value Reference Range Interpretation Comments Basophils # (Auto) (test code = 704-7) 0.0 0.0-0.1 [facility] HospitalAbsolute Immature Granulocyte (auto 2018-05-30 22:11:00* Test Item Value Reference Range Interpretation Comments Absolute Immature Granulocyte (auto (sal t code = Absolute Immature Granulocyte (auto) 0.03 0-0.1 [facility]
--- OUTSIDE RECORDS SUMMARY | 2019-12-16 17:09 | XMS REPORT | Summary of Care ---
Author Author [facility] - [facility] Organization [facility] - [facility] Address Unknown Phone Unavailable Encounter HQ Encntr_alias(FIN) [id number] Date(s): 07/19/17 - 07/19/17 [facility] Outpatient Imaging - [place] [address] [place] [phone] Encounter Diagnosis Bursitis of left shoulder (Final) - 07/22/17 Discharge Disposition: Home or Self Care Attending Physician: Wes Urban DO Vital Signs No data available for this section Problem List No data available for this section Allergies, Adverse Reactions, Alerts No data available for this section Medications No data available for this section Results No data available for this section Immunizations No data available for this section Procedures No data available for this section Social History No data available for this section Assessment and Plan No data available for this section
--- OUTSIDE RECORDS SUMMARY | 2019-12-16 17:09 | XMS REPORT | Continuity of Care Document ---
Author Author Tre PooleCONNIE Organization [facility] Address Unknown Phone Unavailable Care Team Providers Care Bailiff Name Role Phone Desura Information Darudar Unavailable Un available Problems Problem Status Onset Date Classification Date Reported Comments Source Z12.13 - ENCNTR SCREEN FOR MALIGNANT NE Active 08/29/2019 [facility] [place] Contusion of scalp, initial encounter 08/12/2017 11/15/2017 [facility] [place] R51 - HEADACHE Active 08/06/2017 [facility] [place] Bursitis of left shoulder 07/23/2017 10/26/2017 [facility] [place] M25.551 - PAIN IN RIGHT HIP M54.5 - LOW Active 11/29/2015 [facility] [place] Headache 11/15/2017 [facility] [place] Medications No Data Provided for This Section Allergies, Adverse Reactions, Alerts No Known Medication Allergies Immunizations No Data Provided for This Section Results No Data Provided for This Section Pathology Reports No Data Provided for This Section Diagnostic Reports Report Value Date Source Breast Mammo Scrn JARET w neto incl CAD MA BILATERAL DIGITAL SCREENING MAMMOGRAM 3D/2D WITH CAD: 08/29/2019 CLINICAL: Routine/Screening. Current study was evaluated with a Computer Aided Detection (CAD) system. COMPARISON:Comparison is made to exams dated: 12/01/2016 mammogram and 02/15/2015 mammogram - [facility]. TECHNIQUE: Digital Breast Tomosynthesis was performed and utilized for Interpretation. Current study was also evaluated with a Computer Aided Detection (CAD) system. FINDINGS: The tissue of both breasts is almost entirely fat. There are benign calcifications in both breasts. No significant masses, calcifications, or other findings are seen in either breast. There has been no significant interval change. IMPRESSION: BENIGN RECOMMENDATION:There is no mammographic evidence of malignancy. A 1 year screening mammogram is recommended.(08/29/2020) This exam was interpreted at [id number] for EMILEE Ponce, SL 15. Professional services are provided by the [facility] Division of Diagnostic Imaging. Benedicto Lopez M.D. cm/penrad:08/31/2019 08:41:36 [employer] Captain(s): Yoselin Pardo, RT(R)(M), [facility] letter sent: BI-RADS 1/2 Mammogram BI-RADS: 2 Benign 08/29/2019 CATEleanor Ponce Chest 2 views DX EXAM: XR CHES T 2 VIEWS DATE: 11/14/2018 10:32 CDT INDICATION: - R05 Cough COMPARISON: None TECHNIQUE: PA and lateral chest radiographs FINDINGS: BONES: Mild/moderate degenerative change in the thoracic spine with osteophyte formation. HEART: [Normal in size and configuration] Mediastinum and Kanchan: [No mass or vascular abnormality] Lungs: [The lungs are clear, and there is no pleural effusion. IMPRESSION: 1. No acute cardiopulmonary disease. 11/14/2018 [facility] Orbits complete DX Exam: Skull x-ray series, 4 views and orbital x-ray series, 5 views Reason for Exam: r51 headache - S00.03XA Contusion of scalp, initial encounter Comparison Exam: None Discussion: No acute bony abnormalities are identified. No suspicious osteoblastic or osteolytic lesions seen to suggest pathologic involvement. No abnormal bony growths. Paranasal sinuses are unremarkable. Impression: 1. No acute bony abnormalities are iden tified. 08/09/2017 SCOTT Ponce Skull Series DX Exam: Skull x- ray series, 4 views and orbital x-ray series, 5 views Reason for Exam: r51 headache - S00.03XA Contusion of scalp, initial encounter Comparison Exam: None Discussion: No acute bony abnormalities are identified. No suspicious osteoblastic or osteolytic lesions seen to suggest pathologic involvement. No abnormal bony growths. Paranasal sinuses are unremarkable. Impression: 1. No acute bony abnormalities are iden tified. 08/09/2017 SCOTT Gonzaleza Shoulder series DX Exam: Left shoulder x-ray, 2 views Reason for Exam: - M75.52 Bursitis of left shoulder Comparison Exam: None Discussion: No acute bony abnormality seen of the left shoulder. The glenohumeral joint is intact. Mild osteoarthritis is seen within the AC joint. Bulky calcification seen in the expected location of the supraspinatus tendon. Correlate for calcific tendinitis and consider further evaluation with MRI exam. No suspicious osteoblastic or osteolytic lesions. The visualized portions of the left rib cage and left lung are unremarkable. Impression: 1. No acute bony abnormalities identifi ed. Bulky calcification seen in the expected location of the supraspinatus tendon. Correlate for calcific tendinitis and consider further evaluation with MRI exam. 07/19/2017 SCOTT Ponce Breast Mammo Scrn JARET incl CAD MA - BREAST MAMMO SCRN JARET INCL CAD MA BILATERAL DIGITAL SCREENING MAMMOGRAM WITH CAD: 12/01/2016 CLINICAL: Routine/Routine. Current study was evaluated with a Computer Aided Detection (CAD) system. Comparison is made to exam dated: 02/15/2015 mammogram - [facility]. The tissue of both breasts is almost entirely fat. No significant masses, calcifications, or other findings are seen in either breast. There has been no significant interval change. IMPRESSION: NEGATIVE There is no mammographic evidence of malignancy. A 1 year screening mammogram is recommended. Professional services are provided by the [facility] Division of Diagnostic Imaging. Adrianna Tate M.D., kg/chely:12/02/2016 10:25:02 [employer] Captain: Saima JAEGER)([place]), [facility] This exam was dictated and interpreted by [id number] at [facility]. letter sent: Normal exam Mammogram BI-RADS: 1 Negative 12/01/2016 SCOTT Ponce Spine lumbar 2 or 3 views DX E XAMINATION: Lumbar spine - 2 to 3 views HISTORY: M54.5 Low back pain, M25.551 Pain in right hip; lumbar spondylosis FINDINGS: Frontal, lateral, and coned lateral views of the lumbar spine are performed without comparison. There is mild levocurvature of the lumbar spine centered at L3. There is no listhesis. The vertebral body heights are normal without compression fracture. There is mild L2-L3, moderate L4-L5 and moderate to severe L5-S1 degenerative disc disease. Mild endplate spur formation is also noted at L3-L4 without definite intervertebral disc space narrowing. There is multilevel lower lumbar facet osteoarthritis. Mild multilevel degenerative disc disease of the lower thoracic spine is partially visualized. The sacral ala appear intact. There is atherosclerotic calcification of the aorta. IMPRESSION: 1. Mild L2-L3, moderate L4-L5, and moder ate to severe L5-S1 degenerative disc disease with multilevel lower lumbar facet osteoarthritis. 11/29/2015 SCOTT Ponce Hip 2/3 views uni DX EXAMINATI ON: Right hip minimum 2 views HISTORY: M54.5 Low back pain, M25.551 Pain in right hip; right hip osteoarthritis FINDINGS: Frontal and frog leg lateral views of the right hip are performed without comparison. There is no fracture or dislocation. The femoral head is well-seated within the acetabulum. There is mild right hip osteoarthritis with asymmetric joint space narrowing and subchondral irregularity. The visualized sacral ala appear intact. IMPRESSION: 1. Mild right hip osteoarthritis. 11/29/2015 SCOTT Ponce Digital Mammo Screening Jaret MA - DIGITAL MAMMO SCREENING JARET MA BILATERAL DIGITAL SCREENING MAMMOGRAM WITH CAD: 02/15/2015 CLINICAL: Routine. Current study was evaluated with a Computer Aided Detection (CAD) system. No prior exams were available for comparison. The tissue of both breasts is almost entirely fat. No significant masses, calcifications, or other findings are seen in either breast. IMPRESSION: NEGATIVE There is no mammographic evidence of malignancy. A 1 year screening mammogram is recommended. Dr. Chau Saunders M.D. eoc/penrad:02/26/2015 10:47:17 [employer] Captain: Yoselin Pardo [facility] This exam was dictated and interpreted by [id number] for EMILEE Velazquez. letter sent: Normal exam Mammogram BI-RADS: 1 Negative 02/15/2015 EMILEE Ponce Consultation Notes No Data Provided for This Section Discharge Summaries No Data Provided for This Section History and Physicals No Data Provided for This Section Vital Signs No Data Provided for This Section Encounters Location Location Details Encounter Type Encounter Number Reason For Visit Attending Provider ADM Date DC Date Status Source [facility] [place] [facility] [id number] 00 [facility] 02/15/2015 02/16/2015 SCOTT Ponce [facility] [place] [facility] [id number] [address] [facility] 11/29/2015 11/30/2015 SCOTT Ponce [facility] [place] [facility] [id number] 02 [facility] 12/01/2016 12/02/2016 [facility] [place] [facility] [place] [facility] [id number] 03 [place] 07/19/2017 07/20/2017 [facility] [place] [facility] [place] [facility] [id number] 05 [place] 08/09/2017 08/10/2017 [facility] [place] [facility] [place] [facility] [id number] 06 [facility] 11/14/2018 11/15/2018 [facility] [place] [facility] [place] [facility] [id number] 07 Juan Pablomeka GarciaLampe 08/29/2019 08/30/2019 [facility] [place] Procedures No Data Provided for This Section Assessment and Plan No Data Provided for This Section Plan of Care No Data Provided for This Section Social History Social History Date Source Social History TypeResponse 08/30/2019 [facility] [place] No data available for this section 11/15/2018 [facility] [place] Family History No Data Provided for This Section Advance Directives No Data Provided for This Section Functional Status No Data Provided for This Section
--- OUTSIDE RECORDS SUMMARY | 2019-12-16 17:09 | XMS REPORT | Summary of Care ---
Author Author [facility] Outpatient Imaging - [facility] Organization [facility] Address Unknown Phone Unavailable Encounter HQ Encntr_alias(FIN) [id number] Date(s): 07/19/17 - 07/19/17 [facility] Outpatient Imaging - [address] [phone] Discharge Disposition: Home or Self Care Attending [...]
--- OUTSIDE RECORDS SUMMARY | 2019-12-16 17:09 | XMS REPORT | Summary of Care ---
Author Author [facility] Organization [facility] Address Unknown Phone Unavailable Encounter HQ Encntr_eddie(FIN) [id number] Date(s): 02/15/15 - 02/15/15 [facility] Outpatient Imaging - [id number] [place] [address] [phone] Discharge Disposition: Home Attending Physician: Wes Urban DO Vital Signs [...]
--- OUTSIDE RECORDS SUMMARY | 2019-12-16 17:09 | XMS REPORT | Summary of Care ---
Author Author [facility] Address Unknown Phone Unavailable Encounter HQ Encntr_alias(FIN) [id number] Date(s): 11/14/18 - 11/14/18 [facility] Outpatient Imaging - [place] [id number] [facility] [address] [place] [phone] Discharge Disposition: Home or Self Care Attending Physician: Wes Urban DO Referring Physician: Wes Urban DO Vital Signs No [...]
--- OUTSIDE RECORDS SUMMARY | 2019-12-16 17:09 | XMS REPORT | Summary of Care ---
Author Author [facility] Organization [facility] Address Unknown Phone Unavailable Encounter HQ Encntr_alias(FIN) [id number] Date(s): 08/29/19 - 08/29/19 [facility] Outpatient Imaging - [address] [address] [phone] Discharge Disposition: Home or Self Care Attending Physician: Juan Pablo Urban DO Referring Physician: Juan Pablo Urban DO Vital Signs No data available for this section Problem List No data available for this section Allergies, Adverse Reactions, Alerts No data available for this section Medications No data available for this section Results No data available for this section Immunizations No data available for this section Procedures No data available for this section Social History Social History Type Response Assessment and Plan No data available for this section
--- OUTSIDE RECORDS SUMMARY | 2019-12-16 17:09 | XMS REPORT | Summary of Care ---
Author Author [facility] Organization [facility] [place] [facility] Address Unknown Phone Unavailable Encounter HQ Encntr_alias(FIN) [id number] Date(s): 11/29/15 - 11/29/15 [facility] Outpatient Imaging - [id number] [place] [address] [phone] Discharge Disposition: Home Attending Physician: Wes Urban [...]
--- OUTSIDE RECORDS SUMMARY | 2019-12-16 17:09 | XMS REPORT | Summary of Care ---
Author Author [facility] Organization [facility] Address Unknown Phone Unavailable Encounter HQ Encntr_alias(FIN) [id number] Date(s): 12/01/16 - 12/01/16 [facility] Outpatient Imaging - [place] [address] [place] [address]- [phone] Discharge Disposition: Home or Self Care Attending [...]
[2019-12-16] MEDS ORDERED: SODIUM CHLORIDE 0.9% 500ML 500 ML IV ONE (18:00)
--- NOTE | 2019-12-16 18:54 | Diagnostic Imaging Report ---
Exam: Head CT without contrast History: Dizziness, weakness Comparison studies: None Technique: Axial images were obtained from the skull base to the vertex. Coronal and sagittal images reconstructed from the axial data. Dose modulation, iterative reconstruction, and/or weight based adjustment of the mA/kV was utilized to reduce the radiation dose to as low as reasonably achievable. Radiation dose: Total DLP: 921.4 mGy*cm. Estimated effective dose: DLP x 0.015 Intravenous contrast: None Findings: Scalp: No abnormalities. Bones: No fractures, blastic or lytic lesions. Brain sulci: Mildly prominent. Ventricles: Mild compensatory dilatation. No hydrocephalus. Extra-axial spaces: No masses, no fluid collection. Parenchyma: No mass, acute hemorrhage or acute cortical vascular insults. A few subtle hypodensities in the supratentorial white matter are nonspecific but most compatible with chronic small vessel ischemic changes. Sellar/suprasellar region: No abnormalities. Craniocervical junction: Patent foramen magnum. No Chiari one malformation. Incidental findings: Punctate calcific drusen at the right optic nerve insertion. Bilateral intraocular lens replacements. Atherosclerotic calcifications in the carotid siphons an in the right intradural vertebral artery. IMPRESSION: No acute intracranial abnormalities. Chronic findings: 1. Mild generalized parenchymal volume loss. 2. Minimal microvascular ischemic changes. Signed by: Dr. Harpreet Allen M.D. on 12/16/2019 6:51 PM
--- NOTE | 2019-12-16 19:18 | Diagnostic Imaging Report ---
EXAMINATION: CHEST SINGLE (PORTABLE) COMPARISON: None INDICATION: ^DIZZY ^[id number] ^[id number] DISCUSSION: Frontal view of the chest obtained at 1748 hours. HEART AND MEDIASTINUM: The cardiomediastinal silhouette is top normal in size. LINES: None. LUNGS: The lungs are well inflated and clear. No pneumonia or pulmonary edema. PLEURA: No pleural effusion or pneumothorax. BONES AND SOFT TISSUES: No focal osseous lesion. The soft tissues are normal. IMPRESSION: No acute cardiopulmonary disease. Signed by: Dr. Rosie Lujan MD on 12/16/2019 7:15 PM
[2019-12-16 19:27] LABS: BASOPHILS % 0.3 % (0.0-1.0); EOSINOPHILS # (AUTO) 0.1 (0.0-0.4); EOSINOPHILS % 1.2 % (0.0-6.0); HEMATOCRIT 39.1 % (34.2-44.1); HEMOGLOBIN 12.4 g/dL (12.0-16.0); LYMPHOCYTES # (AUTO) 1.7 (1.0-3.2); LYMPHOCYTES % 28.5 % (18.0-39.1); MEAN CORPUSCULAR HEMOGLOBIN 29.5 pg (28-32); MEAN CORPUSCULAR HGB CONC 31.7 g/dL (31-35); MEAN CORPUSCULAR VOLUME 92.9 fL (81-99); MONOCYTES # (AUTO) 0.5 (0.2-0.8); NEUTROPHILS # (AUTO) 3.7 (2.1-6.9); NEUTROPHILS % 61.7 % (38.7-80.0); PLATELET COUNT 145 x10e3/uL (140-360); RED BLOOD COUNT 4.21 x10e6/uL (3.6-5.1); RED CELL DISTRIBUTION WIDTH 13.7 % (11.7-14.4)
[2019-12-16] MEDS ORDERED: MECLIZINE HCL 12.5 MG TAB PO ONE (19:30)
[2019-12-16 19:36] LABS: BILIRUBIN,URINE NEGATIVE (NEGATIVE); CLARITY,URINE HAZY (CLEAR); COLOR,URINE YELLOW (YELLOW); KETONES,URINE NEGATIVE (NEGATIVE); LEUKOCYTE ESTERASE ,URINE TRACE (NEGATIVE); NITRITE,URINE NEGATIVE (NEGATIVE); PROTEIN,URINE DIPSTICK NEGATIVE (NEGATIVE); URINE UROBILINOGEN 0.2 mg/dL (0.2 - 1)
[2019-12-16 19:41] LABS: BACTERIA,URINE FEW /HPF; EPITHELIAL CELLS,URINE FEW /LPF; WBC,URINE (MAN) 0-5 /HPF (0-5)
[2019-12-16 19:43] LABS: INR 0.86; PARTIAL THROMBOPLASTIN TIME 24.6 seconds (23.8-35.5); PROTHROMBIN TIME 12.2 seconds (11.9-14.5)
--- NOTE | 2019-12-16 19:45 | Emergency Department Note ---
History of Present Illnes History of Present Illness Chief Complaint: General Medicine Complaints History of Present Illness This is a 73 year old female presents with intermittent dizziness for 1 year. States current episode has been going on for the last 7 days. States episodes wax and wane. When asked what makes it worse or better she reports movement tends to make the dizziness worse. Also states that occasionally she gets nauseated when she becomes dizzy. Patient denies shortness of breath denies chest pain. . Historian: Patient, Family Member Arrival Mode: Car Onset (how long ago): year(s) (1) Location: head Quality: dizzy Radiation: non-radiation Severity: moderate Onset quality: sudden Duration (how long): month(s) (12) Timing of current episode: intermittent Progression: resolved Context: recent illness Relieving factors: none Exacerbating factors: none, movement (change in position.) Associated symptoms: denies other symptoms Treatments prior to arrival: none Past Medical/Family History Physician Review I have reviewed the patient's past medical and family history. Any updates have been documented here. Past Medical History Recent Fever: No Clinical Suspicion of Infectio: No New/Unexplained Change in Ment: No Past Medical History: Hypertension, Hyperlipedemia Past Surgical History: Cholecysctectomy, Hernia Repair Other Surgery: COLONOSCOPY LIPOMA REMOVAL HERNIA REPAIR Social History Smoking Cessation: Never Smoker Counseling Performed: No Alcohol Use: None Any Illegal Drug Use: No TB Exposure/Symptoms: No Physically hurt or threatened: No Family History Family history of heart diseas: No Other family history htn Other Last Tetanus: UNKNOWN Any Pre-Existing Lines (PICC,: No Is patient up to date on immun: Yes Last Flu: UTD Last Pneumovax: UTD Review of Systems Review of Systems Constitutional: no symptoms EENTM: no symptoms Cardiovascular: no symptoms Respiratory: no symptoms Gastrointestinal: no symptoms Genitourinary: no symptoms Musculoskeletal: no symptoms Neurological: as per HPI Psychological: no symptoms Endocrine: no symptoms Hematological/Lymphatic: no symptoms Review of other systems All other systems reviewed and negative. Physical Exam Related Data Allergies: Coded Allergies: No Known Allergies (Unverified , 05/30/18) Triage Vital Signs Vital Signs Date Time Temp Pulse Resp B/P (MAP) Pulse Ox O2 Delivery O2 Flow Rate FiO2 12/16/19 17:52 97.6 83 14 145/88 100 Vital signs reviewed: Yes Physical Exam CONSTITUTIONAL Constitutional: well-developed, well-nourished HENT HENT: normocephalic, atraumatic, oropharynx clear/moist, nose normal HENT L/R: left ext ear normal, right ext ear normal EYES Eyes: PERRL, conjunctivae normal NECK Neck: ROM normal PULMONARY Pulmonary: effort normal, breath sounds normal CARDIOVASCULAR Cardiovascular: regular rhythm, heart sounds normal, capillary refill normal, normal rate GASTROINTESTINAL Abdominal: soft, nontender, bowel sounds normal GENITOURINARY Genitourinary: exam deferred SKIN Skin: warm, dry MUSCULOSKELETAL Musculoskeletal: ROM normal NEUROLOGICAL Neurological: alert, oriented x 3, DTRs normal, no gross motor or sensory deficits, other (patient has horizontal nystagmus on exam of her eyes) PSYCHOLOGICAL Psychological: mood/affect normal, judgement normal Results Laboratory Result Diagram: 12/16/19 9120 Laboratory Laboratory Tests Test 12/16/19 18:30 White Blood Count 5.99 x10e3/uL (4.8-10.8) Red Blood Count 4.21 x10e6/uL (3.6-5.1) Hemoglobin 12.4 g/dL (12.0-16.0) Hematocrit 39.1 % (34.2-44.1) Mean Corpuscular Volume 92.9 fL (81-99) Mean Corpuscular Hemoglobin 29.5 pg (28-32) Mean Corpuscular Hemoglobin Concent 31.7 g/dL (31-35) Red Cell Distribution Width 13.7 % (11.7-14.4) Platelet Count 145 x10e3/uL (140-360) Neutrophils (%) (Auto) 61.7 % (38.7-80.0) Lymphocytes (%) (Auto) 28.5 % (18.0-39.1) Monocytes (%) (Auto) 8.0 % (4.4-11.3) Eosinophils (%) (Auto) 1.2 % (0.0-6.0) Basophils (%) (Auto) 0.3 % (0.0-1.0) Neutrophils # (Auto) 3.7 (2.1-6.9) Lymphocytes # (Auto) 1.7 (1.0-3.2) Monocytes # (Auto) 0.5 (0.2-0.8) Eosinophils # (Auto) 0.1 (0.0-0.4) Basophils # (Auto) 0.0 (0.0-0.1) Absolute Immature Granulocyte (auto 0.02 x10e3/uL (0-0.1) Prothrombin Time 12.2 seconds (11.9-14.5) Prothromb Time International Ratio 0.86 Activated Partial Thromboplast Time 24.6 seconds (23.8-35.5) Urine Color Yellow (YELLOW) Urine Clarity Hazy (CLEAR) Urine pH 7.5 (5 - 7) Urine Specific [place] 1.020 (1.010-1.025) Urine Protein Negative (NEGATIVE) Urine Glucose (UA) Negative (NEGATIVE) Urine Ketones Negative (NEGATIVE) Urine Blood Small (NEGATIVE) Urine Nitrite Negative (NEGATIVE) Urine Bilirubin Negative (NEGATIVE) Urine Urobilinogen 0.2 mg/dL (0.2 - 1) Urine Leukocyte Esterase Trace (NEGATIVE) Urine RBC 6-10 /HPF (0-5) Urine WBC 0-5 /HPF (0-5) Urine Epithelial Cells Few /LPF (NONE) Urine Bacteria Few /HPF (NONE) Sodium Level 140 mmol/L (136-145) Potassium Level 4.4 mmol/L (3.5-5.1) Chloride Level 105 mmol/L (98-107) Carbon Dioxide Level 27 mmol/L (22-29) Anion Gap 12.4 mmol/L (8-16) Blood Urea Nitrogen 18 mg/dL (7-26) Creatinine 0.68 mg/dL (0.57-1.11) Estimat Glomerular Filtration Rate > 60 ML/MIN (60-) BUN/Creatinine Ratio 26 (6-25) Glucose Level 124 mg/dL (74-118) Calcium Level 9.5 mg/dL (8.4-10.2) Magnesium Level 2.0 MG/DL (1.3-2.1) Total Bilirubin 0.4 mg/dL (0.2-1.2) Aspartate Amino Transf (AST/SGOT) 25 IU/L (5-34) Alanine Aminotransferase (ALT/SGPT) 25 IU/L (0-55) Alkaline Phosphatase 97 IU/L (40-150) Creatine Kinase 405 IU/L (29-168) Creatine Kinase MB 4.00 ng/mL (0-5.0) Troponin I < 0.001 ng/mL (0-0.300) Total Protein 7.6 g/dL (6.5-8.1) Albumin 4.1 g/dL (3.5-5.0) Globulin 3.5 g/dL (2.3-3.5) Albumin/Globulin Ratio 1.2 (0.8-2.0) Laboratory Tests Test 12/16/19 18:30 White Blood Count 5.99 x10e3/uL (4.8-10.8) Red Blood Count 4.21 x10e6/uL (3.6-5.1) Hemoglobin 12.4 g/dL (12.0-16.0) Hematocrit 39.1 % (34.2-44.1) Mean Corpuscular Volume 92.9 fL (81-99) Mean Corpuscular Hemoglobin 29.5 pg (28-32) Mean Corpuscular Hemoglobin Concent 31.7 g/dL (31-35) Red Cell Distribution Width 13.7 % (11.7-14.4) Platelet Count 145 x10e3/uL (140-360) Neutrophils (%) (Auto) 61.7 % (38.7-80.0) Lymphocytes (%) (Auto) 28.5 % (18.0-39.1) Monocytes (%) (Auto) 8.0 % (4.4-11.3) Eosinophils (%) (Auto) 1.2 % (0.0-6.0) Basophils (%) (Auto) 0.3 % (0.0-1.0) Neutrophils # (Auto) 3.7 (2.1-6.9) Lymphocytes # (Auto) 1.7 (1.0-3.2) Monocytes # (Auto) 0.5 (0.2-0.8) Eosinophils # (Auto) 0.1 (0.0-0.4) Basophils # (Auto) 0.0 (0.0-0.1) Absolute Immature Granulocyte (auto 0.02 x10e3/uL (0-0.1) Urine Color Yellow (YELLOW) Urine Clarity Hazy (CLEAR) Urine pH 7.5 (5 - 7) Urine Specific [place] 1.020 (1.010-1.025) Urine Protein Negative (NEGATIVE) Urine Glucose (UA) Negative (NEGATIVE) Urine Ketones Negative (NEGATIVE) Urine Blood Small (NEGATIVE) Urine Nitrite Negative (NEGATIVE) Urine Bilirubin Negative (NEGATIVE) Urine Urobilinogen 0.2 mg/dL (0.2 - 1) Urine Leukocyte Esterase Trace (NEGATIVE) Lab results reviewed: Yes Imaging Imaging results reviewed: Yes Impressions EXAMINATION: CHEST SINGLE (PORTABLE) COMPARISON: None INDICATION: ^DIZZY ^[id number] ^[id number] DISCUSSION: Frontal view of the chest obtained at 1748 hours. HEART AND MEDIASTINUM: The cardiomediastinal silhouette is top normal in size. LINES: None. LUNGS: The lungs are well inflated and clear. No pneumonia or pulmonary edema. PLEURA: No pleural effusion or pneumothorax. BONES AND SOFT TISSUES: No focal osseous lesion. The soft tissues are normal. IMPRESSION: No acute cardiopulmonary disease. Signed by: Dr. Rosie Lujan MD on 12/16/2019 7:15 PM Exam: Head CT without contrast History: Dizziness, weakness Comparison studies: None Technique: Axial images were obtained from the skull base to the vertex. Coronal and sagittal images reconstructed from the axial data. Dose modulation, iterative reconstruction, and/or weight based adjustment of the mA/kV was utilized to reduce the radiation dose to as low as reasonably achievable. Radiation dose: Total DLP: 921.4 mGy*cm. Estimated effective dose: DLP x 0.015 Intravenous contrast: None Findings: Scalp: No abnormalities. Bones: No fractures, blastic or lytic lesions. Brain sulci: Mildly prominent. Ventricles: Mild compensatory dilatation. No hydrocephalus. Extra-axial spaces: No masses, no fluid collection. Parenchyma: No mass, acute hemorrhage or acute cortical vascular insults. A few subtle hypodensities in the supratentorial white matter are nonspecific but most compatible with chronic small vessel ischemic changes. Sellar/suprasellar region: No abnormalities. Craniocervical junction: Patent foramen magnum. No Chiari one malformation. Incidental findings: Punctate calcific drusen at the right optic nerve insertion. Bilateral intraocular lens replacements. Atherosclerotic calcifications in the carotid siphons an in the right intradural vertebral artery. IMPRESSION: No acute intracranial abnormalities. Chronic findings: 1. Mild generalized parenchymal volume loss. 2. Minimal microvascular ischemic changes. Signed by: Dr. Harpreet Allen M.D. on 12/16/2019 6:51 PM Procedures 12 Lead ECG Interpretation Embroidery Worker: Interpreted by ED physician Date: Dec 16, 2019 Time: 19:00 Rhythm: sinus rhythm Rate: normal BPM: 66 QRS axis: normal ST segments normal: Yes T waves normal: Yes Other findings: no other findings Clinical Impression: normal ECG Critical Care Time Subsequent provider I assumed direction of critical care for this patient from another provider of my specialty. Assessment & Plan Assessment & Plan Final Impression: (1) Vertigo, benign positional Assessment & Plan Patient with intermittent dizziness for one year and is made worse by movement. CBC, CMP, cardiac enzymes, EKG, CT brain, UA, chest x-ray, ordered to eval for electrolyte abnormality,myocardial infarction, uti, or cranial abnormality pneumonia. Patient's workup is nothing acute. Patient discharged with Antivert 25 mg 1 by mouth every 6 hours when necessary dizziness. Patient instructed to follow-up with neurology. Depart Disposition: HOME, SELF-CARE Last Vital Signs Date Time Temp Pulse Resp B/P (MAP) Pulse Ox O2 Delivery O2 Flow Rate FiO2 12/16/19 19:07 72 18 155/67 100 12/16/19 17:52 97.6 Home Meds Reported Medications Cephalexin Monohydrate (KEFLEX) 500 Mg Capsule, 500 MG PO TID 07/22/12 Hydrocodone Bit/Acetaminophen (LORTAB 7.5-500 TABLET) 1 Each Tablet, 1 TAB PO Q4 PRN 07/22/12 Ferrous Sulfate (FERROUS SULFATE) 28 Mg Tablet, 65 MG DAILY 07/18/12 Metformin Hcl (METFORMIN HCL) 500 Mg Tablet, DAILY 07/18/12 Fenofibric Acid (Choline) (TRILIPIX) 135 Mg Capsule.dr, DAILY 07/18/12 Simvastatin (SIMVASTATIN) 40 Mg Tablet, HS 07/18/12 Olmesartan Medoxomil (BENICAR) 40 Mg Tablet, DAILY 07/18/12 Medications in the ED Sodium Chloride 500 ml @ 0 mls/hr Q0M ONCE IV ; Start 12/16/19 at 18:00; Stop 12/16/19 at 18:01; Status DC Meclizine HCl 25 mg ONCE ONCE PO ; Start 12/16/19 at 19:30; Stop 12/16/19 at 19:31; Status DC KEITH MCMAHAN MD Dec 16, 2019 19:45
[2019-12-16 19:51] LABS: ALANINE AMINOTRANSFERASE 25 IU/L (0-55); ALBUMIN 4.1 g/dL (3.5-5.0); ALBUMIN/GLOBULIN RATIO 1.2 (0.8-2.0); ALKALINE PHOSPHATASE 97 IU/L (40-150); ANION GAP 12.4 mmol/L (8-16); BLOOD UREA NITROGEN 18 mg/dL (7-26); BUN/CREATININE RATIO 26 (6-25); CALCIUM 9.5 mg/dL (8.4-10.2); CARBON DIOXIDE 27 mmol/L (22-29); CHLORIDE 105 mmol/L (98-107); CREATINE KINASE 405 IU/L (29-168); CREATININE, SERUM 0.68 mg/dL (0.57-1.11); EST GLOMERULAR FILTRATION RATE > 60 ML/MIN (60-); GLUCOSE 124 mg/dL (74-118); POTASSIUM 4.4 mmol/L (3.5-5.1); SODIUM 140 mmol/L (136-145)
[2019-12-16 20:27] VITALS: BP 141/58
== END 2019-12-16 20:36 | disposition home or self-care (01) ==
LOC: ER 17:04
DX: H81.10 Benign paroxysmal vertigo, unspecified ear (principal); I10 Essential (primary) hypertension; E78.5 Hyperlipidemia, unspecified
CPT/HCPCS: 36415; 70450; 71045; 80053; 81001; 82550; 82553; 83735; 84484; 85025; 85610; 85730; 93005; 99284; J7040

== ENCOUNTER 2020-01-17 09:40 | Emergency (ER) | payer MEDICARE ==
[~2020-01-17] VITALS: Ht 157.5 cm; Wt 62.1 kg
--- NOTE | 2020-01-17 10:02 | Emergency Department Note ---
History of Present Illnes History of Present Illness Chief Complaint: Neurological History of Present Illness This is a 74 year old female c/o dizziness x 1 yr states worse today and feeling weak states antivert doesn't work for her has appt with neurologist 01/31/20 but feels she can't wait seen by dr shepherd. 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 Any updates have been documented here. Past Medical History Recent Fever: No Clinical Suspicion of Infectio: No New/Unexplained Change in Ment: No Past Medical History: Hypertension, Hyperlipedemia Past Surgical History: Cholecysctectomy, Hernia Repair Other Surgery: COLONOSCOPY LIPOMA REMOVAL HERNIA REPAIR Other Last Tetanus: UNKNOWN Review of Systems Review of Systems Constitutional: Reports no symptoms EENTM: Reports no symptoms Cardiovascular: Reports no symptoms Respiratory: Reports no symptoms Gastrointestinal: Reports no symptoms Genitourinary: Reports no symptoms Musculoskeletal: Reports no symptoms Integumentary: Reports no symptoms Neurological: Reports as per HPI Psychological: Reports no symptoms Endocrine: Reports no symptoms Hematological/Lymphatic: Reports no symptoms Physical Exam Related Data Allergies: Coded Allergies: No Known Allergies (Unverified , 05/30/18) Triage Vital Signs Vital Signs Date Time Temp Pulse Resp B/P (MAP) Pulse Ox O2 Delivery O2 Flow Rate FiO2 01/17/20 09:51 99.0 66 18 136/65 98 Room Air Vital signs reviewed: Yes Physical Exam CONSTITUTIONAL Constitutional: Present well-developed, Present well-nourished HENT HENT: Present normocephalic, Present atraumatic, Present oropharynx clear/moist, Present nose normal HENT L/R: Present left ext ear normal, Present right ext ear normal EYES Eyes: Reports PERRL, Reports conjunctivae normal NECK Neck: Present ROM normal PULMONARY Pulmonary: Present effort normal, Present breath sounds normal CARDIOVASCULAR Cardiovascular: Present regular rhythm, Present heart sounds normal, Present capillary refill normal, Present normal rate GASTROINTESTINAL Abdominal: Present soft, Present nontender, Present bowel sounds normal GENITOURINARY Genitourinary: Present exam deferred SKIN Skin: Present warm, Present dry MUSCULOSKELETAL Musculoskeletal: Present ROM normal NEUROLOGICAL Neurological: Present alert, Present oriented x 3, Present no gross motor or sensory deficits; Absent cranial nerve deficit, Absent sensory deficit, Absent abnormal DTRs, Absent abnormal gait, Absent weakness PSYCHOLOGICAL Psychological: Present mood/affect normal, Present judgement normal Assessment & Plan Medical Decision Making [facility] labs and CT head normal 1 month ago Reassessment Reassessment dc home, keep F/U with Neuro 01/30 as scheduled, F/U Dr Nghia Lew, ENT - call [facility] for appt. Pt has Antivert - use UD Assessment & Plan Final Impression: (1) Vertigo, benign positional Depart Disposition: HOME, SELF-CARE Last Vital Signs Date Time Temp Pulse Resp B/P (MAP) Pulse Ox O2 Delivery O2 Flow Rate FiO2 01/17/20 09:51 99.0 66 18 136/65 98 Room Air Home Meds Reported Medications Cephalexin Monohydrate (KEFLEX) 500 Mg Capsule, 500 MG PO TID 07/22/12 Hydrocodone Bit/Acetaminophen (LORTAB 7.5-500 TABLET) 1 Each Tablet, 1 TAB PO Q4 PRN 07/22/12 Ferrous Sulfate (FERROUS SULFATE) 28 Mg Tablet, 65 MG DAILY 07/18/12 Metformin Hcl (METFORMIN HCL) 500 Mg Tablet, DAILY 07/18/12 Fenofibric Acid (Choline) (TRILIPIX) 135 Mg Capsule., DAILY 07/18/12 Simvastatin (SIMVASTATIN) 40 Mg Tablet, HS 07/18/12 Olmesartan Medoxomil (BENICAR) 40 Mg Tablet, DAILY 07/18/12 FINA SHEPHERD MD Jan 17, 2020 10:02
== END 2020-01-17 09:59 | disposition home or self-care (01) ==
LOC: ER 09:59
DX: H81.10 Benign paroxysmal vertigo, unspecified ear (principal); I10 Essential (primary) hypertension; E78.5 Hyperlipidemia, unspecified
CPT/HCPCS: 93005; 99282

== ENCOUNTER 2020-11-28 19:40 | Emergency (ER) | payer OTHER, MEDICARE ==
[~2020-11-28] VITALS: Ht 157.5 cm; Wt 62.1 kg
[2020-11-28 21:51] LABS: BASOPHILS % 0.4 % (0.0-1.0); EOSINOPHILS % 0.3 % (0.0-6.0); HEMATOCRIT 39.4 % (34.2-44.1); HEMOGLOBIN 12.7 g/dL (12.0-16.0); LYMPHOCYTES # (AUTO) 1.3 (1.0-3.2); MEAN CORPUSCULAR HEMOGLOBIN 29.1 pg (28-32); MEAN CORPUSCULAR HGB CONC 32.2 g/dL (31-35); MEAN CORPUSCULAR VOLUME 90.2 fL (81-99); MONOCYTES # (AUTO) 0.8 (0.2-0.8); MONOCYTES % 7.5 % (4.4-11.3); NEUTROPHILS % 78.4 % (38.7-80.0); PLATELET COUNT 232 x10e3/uL (140-360); RED BLOOD COUNT 4.37 x10e6/uL (3.6-5.1); RED CELL DISTRIBUTION WIDTH 13.2 % (11.7-14.4)
[2020-11-28 22:00] LABS: INR 0.86; PROTHROMBIN TIME 12.3 seconds (11.9-14.5)
[2020-11-28 22:01] LABS: PARTIAL THROMBOPLASTIN TIME 24.9 seconds (23.8-35.5)
[2020-11-28 22:08] LABS: ALANINE AMINOTRANSFERASE 29 IU/L (0-55); ALBUMIN 4.2 g/dL (3.5-5.0); ALBUMIN/GLOBULIN RATIO 1.2 (0.8-2.0); ALKALINE PHOSPHATASE 82 IU/L (40-150); ANION GAP 15.3 mmol/L (8-16); BLOOD UREA NITROGEN 19 mg/dL (7-26); BUN/CREATININE RATIO 25 (6-25); CALCIUM 9.6 mg/dL (8.4-10.2); CARBON DIOXIDE 21 mmol/L (22-29); CHLORIDE 106 mmol/L (98-107); CREATININE, SERUM 0.77 mg/dL (0.57-1.11); EST GLOMERULAR FILTRATION RATE > 60 ML/MIN (60-); GLUCOSE 165 mg/dL (74-118); POTASSIUM 4.3 mmol/L (3.5-5.1); SODIUM 138 mmol/L (136-145)
== END 2020-11-28 23:02 | disposition other institution (70) ==
LOC: ER 21:31
DX: S06.6X0A Traumatic subarachnoid hemorrhage without loss of consciousness, initial encounter (principal); S01.81XA Laceration without foreign body of other part of head, initial encounter; W01.0XXA Fall on same level from slipping, tripping and stumbling without subsequent striking against object, initial encounter; Y93.01 Activity, walking, marching and hiking; I10 Essential (primary) hypertension; E78.5 Hyperlipidemia, unspecified
CPT/HCPCS: 36415; 70450; 72125; 80053; 85025; 85610; 85730; 99284

== ENCOUNTER 2021-06-11 10:46 | Emergency (ER) | payer MEDICARE ==
[~2021-06-11] VITALS: Ht 157.5 cm; Wt 62.1 kg
== END 2021-06-11 11:47 | disposition home or self-care (01) ==
LOC: ER 11:26
DX: M62.830 Muscle spasm of back (principal); I10 Essential (primary) hypertension; E78.5 Hyperlipidemia, unspecified
CPT/HCPCS: 99283

== ENCOUNTER 2021-10-06 05:20 | Emergency (ER) | payer OTHER ==
[~2021-10-06] VITALS: Ht 167.6 cm; Wt 63.5 kg
[2021-10-06 06:23] LABS: BASOPHILS % 0.2 % (0.0-1.0); EOSINOPHILS % 0.3 % (0.0-6.0); HEMATOCRIT 32.9 % (34.2-44.1); HEMOGLOBIN 10.3 g/dL (12.0-16.0); LYMPHOCYTES # (AUTO) 1.3 (1.0-3.2); LYMPHOCYTES % 12.8 % (18.0-39.1); MEAN CORPUSCULAR HEMOGLOBIN 29.6 pg (28-32); MEAN CORPUSCULAR HGB CONC 31.3 g/dL (31-35); MEAN CORPUSCULAR VOLUME 94.5 fL (81-99); MONOCYTES % 9.2 % (4.4-11.3); NEUTROPHILS % 77.3 % (38.7-80.0); PLATELET COUNT 196 x10e3/uL (140-360); RED BLOOD COUNT 3.48 x10e6/uL (3.6-5.1); RED CELL DISTRIBUTION WIDTH 14.1 % (11.7-14.4)
[2021-10-06 06:42] LABS: INR 1.01; PROTHROMBIN TIME 14.2 seconds (11.9-14.5)
[2021-10-06 06:43] LABS: PARTIAL THROMBOPLASTIN TIME 28.8 seconds (23.8-35.5)
[2021-10-06 06:48] LABS: ALBUMIN 3.4 g/dL (3.5-5.0); CALCIUM 9.4 mg/dL (8.4-10.2); CREATININE, SERUM 0.55 mg/dL (0.57-1.11)
[2021-10-06 06:55] LABS: CREATINE KINASE MB 1.4 ng/mL (0-5.0)
== END 2021-10-06 07:23 | disposition home or self-care (01) ==
LOC: ER 05:27
DX: S00.83XA Contusion of other part of head, initial encounter (principal); I62.03 Nontraumatic chronic subdural hemorrhage; W01.0XXA Fall on same level from slipping, tripping and stumbling without subsequent striking against object, initial encounter; Y93.01 Activity, walking, marching and hiking; Y92.008 Other place in unspecified non-institutional (private) residence as the place of occurrence of the external cause; I10 Essential (primary) hypertension; Z86.73 Personal history of transient ischemic attack (TIA), and cerebral infarction without residual deficits
CPT/HCPCS: 36415; 70450; 70486; 72125; 80053; 82550; 82553; 84484; 85025; 85610; 85730; 99284

== ENCOUNTER 2021-10-07 16:22 | Emergency (ER) | payer MEDICARE, OTHER ==
[~2021-10-07] VITALS: Ht 167.6 cm; Wt 63.5 kg
== END 2021-10-07 20:38 | disposition home or self-care (01) ==
LOC: ER 18:00
DX: R10.84 Generalized abdominal pain (principal); I10 Essential (primary) hypertension; Z86.73 Personal history of transient ischemic attack (TIA), and cerebral infarction without residual deficits
CPT/HCPCS: 70450; 74176; 93005; 99283